=== PATIENT | female | born 2000 | race Caucasian/White ===

== ENCOUNTER 2020-02-13 14:45 | Emergency (ER) | payer BC, SELFPAY ==
[2020-02-13] VITALS (9 sets, daily range): BP systolic 106–159; BP diastolic 60–97; PULSE 86–120; RESP 12–20; TEMP 36.4–36.8; O2SAT 96–100
--- NOTE | ~2020-02-13 | US_ITS ---
EXAMINATION: US pelvic complete w TV EXAM DATE: 02/13/2020 16:54 INDICATION: Pelvic pain. Abnormal uterine bleeding. TECHNIQUE: Pelvic transabdominal and transvaginal sonogram was performed. There are multiple graysca le and Doppler images available for interpretation. There is no prior study for comparison. FINDINGS: Uterus measures 9.6 x 3.3 x 4.8 cm, is anteverted and morphologically normal. Endometrial stripe measures 4 mm, within normal limits. There is no free pelvic fluid. Right adnexa: The ovary measures 4 x 1.8 x 1.8 cm and is morphologically normal. Ovarian vascular deborah w confirmed. Left adnexa: The ovary is not identified. There is no adnexal mass. IMPRESSION: 1. Unremarkable pelvic ultrasound exam. Reviewed, dictated and finalized at location A.
[2020-02-13 15:20] LABS: Basophils Percent Auto 0.4 % (0.2-1.2); Eosinophils Absolute Auto 0.3 K/mm3 (0-0.3); Eosinophils Percent Auto 2.4 % (0-4.4); Hematocrit 40.5 % (37.0-47.0); Hemoglobin 13.2 g/dL (12.0-15.0); Immature Granulocyte Absolute 0.03 K/mm3 (0.00-0.031); Immature Granulocyte Percent A 0.3 % (0-0.5); Lymphocytes Absolute Auto 1.97 K/mm3 (0.9-3.2); Lymphocytes Percent Auto 18.6 % (18.3-44.2); Mean Corpuscular HGB Conc 32.6 g/dl (32-36); Mean Corpuscular Hemoglobin 27.4 pg (26-34); Mean Corpuscular Volume 84.2 fl (80-100); Mean Platelet Volume 9.8 fl (7.4-10.4); Monocytes Absolute Auto 0.9 K/mm3 (0.1-0.6); Monocytes Percent Auto 8.7 % (2.6-8.5); Neutrophils Absolute Auto 7.4 K/mm3 (1.3-6.7); Neutrophils Percent Auto 69.6 % (45.5-73.1); Platelet Count Result 261 k/mm3 (150-375); Red Blood Count 4.81 M/mm3 (4.2-5.4); Red Cell Distribution Width 13.7 % (11.5-14.5); White Blood Count 10.6 K/mm3 (4.5-10.0)
[2020-02-13 15:55] LABS: Beta HCG Quantitative < 2.39 mIU/ML
--- NOTE | 2020-02-13 16:09 | PC.NURSE ---
added on cmp at this time
--- NOTE | 2020-02-13 16:10 | ED.FEMALEGU ---
HPI - Female Genitourinary General Chief complaint: Vaginal Bleeding Stated complaint: VAGINAL BLEEDING/NEGATIVE PREG TEST Time Seen by Provider: 02/13/20 15:30 Source: patient Mode of arrival: ambulatory Limitations: no limitations History of Present Illness HPI Narrative: This is a 19 year old female that presents to the ER for AUB. Reports her last period was in the end of December. Reports she started bleeding and cramping 3 days ago. Reports the bleeding was heavier than usual which concerned her. Reports a negative urine test at home. Reports urinary frequency. Denies fever, nausea, vomiting, or dysuria. Related Data Allergies Allergy/AdvReac Type Severity Reaction Status Date / Time No Known Allergies Allergy Mild Verified 02/13/20 14:46 Review of Systems Review of Systems: Narrative: CONSTITUTIONAL: Denies fever GASTROINTESTINAL: Reports pelvic pain. Denies nausea, vomiting, or diarrhea. GENITOURINARY: Denies dysuria or hematuria. All systems reviewed & are unremarkable except as noted in HPI and below PMFSH Past Medical History Medical History (Updated 02/13/20 @ 19:15 by Veronica Merino PA-C) No active medical problems Social History Social History (Updated 02/13/20 @ 16:11 by Veronica Merino PA-C) Substance use: never Gender identity (if verbalized by the patient): Female Exam Narrative: Exam Narrative: GENERAL: Well-appearing, well-nourished, and in no acute distress. HEAD: Normocephalic, atraumatic. EYES: EOMI. CHEST: Clear to auscultation. No respiratory distress. No wheezes rales or rhonchi HEART: Regular rate and rhythm. No murmur heard. Normal peripheral pulses. ABDOMEN: Soft, nontender, nondistended, normal active bowel sounds. EXTREMITIES: Normal range of motion. No edema. SKIN: Warm, dry, no rash. NEURO: No focal deficits. Alert and oriented x3. PSYCH: Normal mood and affect PELVIC: Small amount of red blood in the vaginal vault, slowly oozing from cervix. Course Vital Signs Vital signs: Vital Signs Temperature 97.6 F 02/13/20 14:47 Pulse Rate 120 H 02/13/20 14:47 Respiratory Rate 20 02/13/20 14:47 Blood Pressure 159/97 H 02/13/20 14:47 Pulse Oximetry 100 02/13/20 14:47 Temperature 97.6 F 02/13/20 14:47 Pulse Rate 95 02/13/20 18:57 Respiratory Rate 12 02/13/20 18:57 Blood Pressure 141/87 H 02/13/20 18:57 Pulse Oximetry 96 02/13/20 18:57 MDM - Female Genitourinary MDM Narrative Medical decision making narrative: Patient presents to the emergency department for abnormal uterine bleeding. Reports she was having very heavy bleeding for the last couple of days. She is afebrile and nontoxic-appearing. No concerning bleeding on exam. She is not orthostatic. Her hemoglobin is 13.2. Metabolic panel without concerning findings. Quantitative beta-hCG is negative. UA with 10-15 white blood cells and 1+ bacteria, but also with many squamous epithelial cells. This will be sent for culture. Pelvic US is without acute findings. Patient will be started on oral antibiotic for possible urinary tract infection. She is stable and felt appropriate further outpatient evaluation. She is to follow-up with her primary care doctor. She was given warnings to return to the ER Lab Data Attestation: I reviewed the patient's lab results. Result diagrams: 02/13/20 15:13 02/13/20 15:13 Labs: Lab Results 02/13/20 02/13/20 02/13/20 Range/Units 15:13 15:13 15:13 WBC 10.6 H (4.5-10.0) K/mm3 RBC 4.81 (4.2-5.4) M/mm3 Hgb 13.2 (12.0-15.0) g/dL Hct 40.5 (37.0-47.0) % MCV 84.2 (80-100) fl MCH 27.4 (26-34) pg MCHC 32.6 (32-36) g/dl RDW 13.7 (11.5-14.5) % Plt Count 261 (150-375) k/mm3 MPV 9.8 (7.4-10.4) fl Immature Gran % (Auto) 0.3 (0-0.5) % Neut % (Auto) 69.6 (45.5-73.1) % Lymph % (Auto) 18.6 (18.3-44.2) % [place] % (Auto) 8.7 H (2.6-8.5) % Eos % (Auto) 2.4 (
[2020-02-13 16:36] LABS: Alanine Aminotransferase 28 U/L (4-35); Alkaline Phosphatase 63 U/L (38-126); Anion Gap 12 mmol/L (8-16); Aspartate Amino Transferase 42 U/L (14-36); Bilirubin,Total 0.5 mg/dL (0.2-1.3); Blood Urea Nitrogen 17 mg/dL (7-17); Calcium 9.1 mg/dL (8.4-10.2); Carbon Dioxide 24 mmol/L (22-30); Chloride 107 mmol/L (98-107); Estimated Glomerular Filt Rate > 60; Glucose 108 mg/dL (65-105); Sodium 143 mmol/L (137-145)
[2020-02-13 18:21] LABS: Add Urine Microscopic? YES; Appearance Urine Cloudy (Clear); Bacteria Urine 1+ /hpf; Bilirubin Urine Negative (Negative); Blood Urine 3+ (Negative); Color Urine Yellow (Yellow); Glucose Urine UA Negative (Negative); Ketones Urine Negative (Negative); Leukocyte Esterase Ur Negative LEU/UL (Negative); Mucus Urine Few /lpf; Nitrate Urine Negative (Negative); Protein Urine Negative (Negative); RBC Urine >75 /hpf (0-2); Specific Grav Ur 1.024 (1.001-1.035); Squamous Epithelial Cell Urine Many /hpf (Few); Urobilinogen Urine Negative mg/dL (<2.0)
== END 2020-02-13 19:21 | disposition home or self-care (01) ==
PROVIDERS: Physician Assistant; Emergency Provider Family Medicine; PCP Family Medicine Adolescent Medicine
DX: N93.8 Other specified abnormal uterine and vaginal bleeding (principal); N30.00 Acute cystitis without hematuria
CPT/HCPCS: 36415; 76830; 76856; 80053; 81001; 84702; 85025; 87086; 87088; 99284

== ENCOUNTER 2020-06-25 19:45 | Emergency (ER) | payer MEDICAID, SELFPAY ==
[2020-06-25 20:25] VITALS: BP 134/79; PULSE 88; RESP 16; TEMP 36.4; O2SAT 100
[2020-06-26] VITALS: BP 142/78; PULSE 87; RESP 20; O2SAT 100
[2020-06-26 01:14] LABS: Add Urine Microscopic? YES; Appearance Urine Cloudy (Clear); Bacteria Urine Trace /hpf; Bilirubin Urine Negative (Negative); Blood Urine 3+ (Negative); Color Urine Amber (Yellow); Glucose Urine UA Negative (Negative); Ketones Urine Negative (Negative); Leukocyte Esterase Ur Trace LEU/UL (Negative); Mucus Urine Heavy /lpf; Nitrate Urine Negative (Negative); Protein Urine 2+ mg/dL (Negative); Specific Grav Ur 1.033 (1.001-1.035); Squamous Epithelial Cell Urine Many /hpf (Few)
--- NOTE | 2020-06-26 01:25 | PC.NURSE ---
pt. requesting to go. Pt. states she wants to go home. RN educated pt. of the risks of leaving before completing a medical screening. Pt. still stating she would like to leave. ERP notified of Pt. request. ERP in to further educate the Pt. of risks of leaving against medical advice. PT. signed AMA paper work.
--- NOTE | 2020-06-26 01:26 | ED.GENADULT ---
HPI - General Adult General Chief complaint: Vaginal Bleeding Stated complaint: miscarriage only bleeding in the pee not the pad Time Seen by Provider: 06/26/20 00:34 History of Present Illness HPI narrative: Patient is a 20-year-old female who presents the emergency department chief complaint of vaginal bleeding/bleeding with urination. The patient states she recently saw her SENIOR MECHANICAL ESTIMATOR after she found out she was and was told that she was going to miscarry. Patient states she had some discomfort in her pelvis and abdomen states that whenever she urinates there is blood denies having vaginal bleeding this been enough to fill a pad. Related Data Allergies Allergy/AdvReac Type Severity Reaction Status Date / Time No Known Allergies Allergy Mild Verified 02/13/20 14:46 Review of Systems Review of Systems: Narrative: A 10 system review of systems was completed on the patient and is negative except for what is stated in the HPI. Nursing and ancillary documentation was reviewed. [facility] Past Medical History Medical History No active medical problems Social History Social History Substance use: never Gender identity (if verbalized by the patient): Female Exam Narrative: Exam Narrative: GENERAL: Well-appearing, well-nourished, and in no acute distress. HEAD: Normocephalic, atraumatic. EYES: PERRLA and EOMI. ENT: Nares clear, no rhinorrhea or epistaxis. Mucous membranes moist. NECK: Supple. CHEST: Clear to auscultation. No respiratory distress. HEART: Regular rate and rhythm. No murmur heard. Normal peripheral pulses. ABDOMEN: Soft, nontender, nondistended, normal active bowel sounds. EXTREMITIES: Normal range of motion. No edema. SKIN: Warm, dry, no rash. NEURO: No focal deficits. Alert and oriented x3. PSYCH: Normal mood and affect. Course Course Emergency Course: It was explained to the patient that we would need to do laboratory testing and potentially an ultrasound to evaluate for her symptoms. Patient stated that it was late in the evening and she wished to go home at this time. It was explained that the risk of neck risk of other permanent disability or permanent infertility the patient understood these risk and stated that she would follow-up with her SENIOR MECHANICAL ESTIMATOR. Vital Signs Vital signs: Vital Signs Temperature 36.4 C 06/25/20 20:25 Pulse Rate 88 06/25/20 20:25 Respiratory Rate 16 06/25/20 20:25 Blood Pressure 134/79 06/25/20 20:25 Pulse Oximetry 100 06/25/20 20:25 Temperature 36.4 C 06/25/20 20:25 Pulse Rate 87 06/26/20 00:00 Respiratory Rate 20 06/26/20 00:00 Blood Pressure 142/78 H 06/26/20 00:00 Pulse Oximetry 100 06/26/20 00:00 Medical Decision Making Vital Signs Vital Signs: Vital Signs Temperature 36.4 C 06/25/20 20:25 Pulse Rate 88 06/25/20 20:25 Respiratory Rate 16 06/25/20 20:25 Blood Pressure 134/79 06/25/20 20:25 Pulse Oximetry 100 06/25/20 20:25 Temperature 36.4 C 06/25/20 20:25 Pulse Rate 87 06/26/20 00:00 Respiratory Rate 20 06/26/20 00:00 Blood Pressure 142/78 H 06/26/20 00:00 Pulse Oximetry 100 06/26/20 00:00 Lab Data Labs: Lab Results 06/26/20 Range/Units 00:55 Urine Color Penny (Yellow) Urine Appearance Cloudy H (Clear) Urine pH 5.0 (5.0-9.0) Ur Specific [place] 1.033 (1.001-1.035) Urine Protein 2+ H (Negative) mg/dL Urine Glucose (UA) Negative (Negative) mg/dL Urine Ketones Negative (Negative) mg/dL Ur Blood (Man) 3+ H (Negative) Urine Nitrate Negative (Negative) Urine Bilirubin Negative (Negative) Urine Urobilinogen 2.0 H (<2.0) mg/dL Leukocyte Esterase Rfl Trace H (Negative) BRUNO/UL Urine RBC 3-5 H (0-2) /hpf Urine WBC 7-9 H /hpf Ur Squamous Epith Cells Many H (Few) /hpf Urine Bacteria Trace /hpf Urine Mu
== END 2020-06-26 01:25 | disposition left against medical advice (07) ==
PROVIDERS: Emergency Provider Emergency Medicine; PCP Family Medicine Adolescent Medicine
DX: O20.0 Threatened abortion (principal); Z3A.00 Weeks of gestation of pregnancy not specified
CPT/HCPCS: 81001; 81025; 87086; 99283

== ENCOUNTER 2020-06-30 00:59 | Day surgery (SDC) | payer MEDICAID, SELFPAY ==
[2020-06-30 10:42] VITALS: BP 140/83; PULSE 88; RESP 20; TEMP 36.7; O2SAT 100
[2020-06-30] MEDS: LACTATED RINGERS 1,000 ML 30 ML IV CONT (11:00)
[2020-06-30] MEDS: ACETAMINOPHEN 500 MG TABLET 1000 MG PO (11:11)
--- NOTE | 2020-06-30 11:16 | WPDANESEPPF ---
Anes - Initial Pre Proc Eval Procedure: Operation Date: 06/30/20 12:00 Proposed Procedures p Suction Dilation And Curettage - Hanh Kirby MD Date/Time: 06/30/20 11:16 Surgeon: Hanh Kirby MD Pre Op Diagnosis: Missed Ab Patient Data Age: 20 Gender: F Height: Weight: Allergies Allergy/AdvReac Type Severity Reaction Status Date / Time No Known Allergies Allergy Mild Verified 02/13/20 14:46 Home Medications Medication Instructions Recorded Confirmed Type No Home Medications 06/30/20 06/30/20 History Patient hx anesthesia problems: none Family hx anesthesia problems: none [facility] Past Medical History Medical History No active medical problems Social History Social History Smoking packs per day: 0.5 Smoking cigarettes per day: 10.0 Years smoked: 1 Smoking pack-years: 0.50 Smoking status: Current every day smoker Tobacco type: cigarettes Substance use: never Living arrangements: with family Gender identity (if verbalized by the patient): Female Sexual Orientation (if Verbalized by the Patient): Straight or Heterosexual Spiritual care concerns: No Anes - Eval Final PreProcedure Day of Procedure 06/30/20 11:16 Patient weight: super morbidly obese Heart: regular rate and rhythm Lungs: clear to auscultation and normal air movement Airway: Mallampati scale class II Neurological: alert and oriented Last oral intake: >/= 8 hours ASA classification: III Emergent: no Anesthetic plan: proceed Anesthesia type and monitoring: general GIVS and standard monitoring Informed Consent: The patient's anesthetic plan and its attendant risks and benefits were discussed with the patient/family/POA. Questions were solicited and answers provided to the satisfaction of the patient/family/POA.
[2020-06-30 11:19] VITALS: BMI 53.2
--- NOTE | 2020-06-30 12:56 | WPDHPUPDATE1 ---
History and Physical Update Update Date/Time: 06/30/20 12:56 History and Physical has been reviewed, including an updated exam of the patient. There are NO changes in the patient's condition. Risks, benefits, and alternatives have been discussed and questions answered. Patient agrees to proceed with procedure.
--- NOTE | 2020-06-30 12:56 | PM.IMHP ---
H&P: HPI History of Present Illness Date/Time: 06/30/20 12:56 Chief Complaint: Incomplete miscarriage Narrative: Beba Sparks is a 20 year old female 1 with a incomplete . We have agreed to perform suction D&C. She understands there is risk to the procedure. She understands that injuries may occur that result in hospitalization, more surgery, severe illness. She understands there is risk of hemorrhage and infection. She denies any nausea, vomiting, fever, chills. She denies any chest pain or shortness of breath. Review of Systems Constitutional: Constitutional: Reports no additional constitutional complaints, Denies fatigue, Denies headache(s), Denies lethargy and Denies weakness Eyes: Eyes: Reports no additional eye complaints, Denies blurry vision and Denies photophobia ENT: Reports as per HPI, Denies headache(s) and Denies neck pain Cardiovascular: Cardiovascular: Denies chest pain, Denies diaphoresis, Denies leg edema, Denies palpitations and Denies dyspnea Respiratory: Respiratory: Denies hemoptysis, Denies dyspnea and Denies wheezing Gastrointestinal: Gastrointestinal: Denies abdominal pain, Denies melena, Denies bloating, Denies hematochezia, Denies nausea and Denies vomiting Genitourinary: Genitourinary: Reports no additional female genitourinary complaints Musculoskeletal: Musculoskeletal: Denies joint swelling, Denies neck pain, Denies numbness and Denies stiffness Neurologic: Denies Abnormal speech present, Denies confusion, Denies headache(s), Denies numbness and Denies weakness Psychiatric: Psychiatric: Denies anxiety, Denies confusion, Denies depression, Denies homicidal ideation and Denies suicidal ideation Endocrine: Endocrine: Denies fatigue and Denies palpitations Allergic/Immunologic: Allergic/Immunologic: Denies wheezing PMFSH Past Medical History Medical History No active medical problems Social History Social History Smoking packs per day: 0.5 Smoking cigarettes per day: 10.0 Years smoked: 1 Smoking pack-years: 0.50 Smoking status: Current every day smoker Tobacco type: cigarettes Substance use: never Living arrangements: with family Gender identity (if verbalized by the patient): Female Sexual Orientation (if Verbalized by the Patient): Straight or Heterosexual Spiritual care concerns: No Meds Home Medications and Allergies Home Medications Medication Instructions Recorded Confirmed Type No Home Medications 06/30/20 06/30/20 History Allergies Allergy/AdvReac Type Severity Reaction Status Date / Time No Known Allergies Allergy Mild Verified 06/30/20 12:07 Vital Signs Vital Signs - 24 hr 06/30/20 10:42 Temperature 98.0 F Pulse Rate 88 Respiratory Rate 20 Blood Pressure 140/83 Pulse Oximetry 100 Exam Const: General: healthy appearing, comfortable and no acute distress; No confusion Orientation/consciousness: No confusion Eyes: Direct Ophthalmoscopy: No photophobia Resp: Auscultation: clear to auscultation bilaterally, no rales, no rhonchi and no wheezes Cardio: Rate: regular rate Heart sounds: no click, no murmurs and no rubs GI: Inspection: non-distended GI Palp: No abdominal tenderness Auscultation: normal bowel sounds Neuro: General: No confusion Speech: No Abnormal speech present Extrem: General: normal to inspection, no pedal edema and no calf tenderness Assessment and Plan Assessment and plan (1) Incomplete miscarriage: Code(s): O03.4 - Incomplete spontaneous without complication Status: Acute Additional Plan This patient is a 20-year-old 1 at the 1st trimester with an incomplete . We have agreed to perform suction D&C. She understands the risks, benefits, and alternatives. She has completed the informed consent processes and raised to
[2020-06-30 14:10] VITALS: BP 117/88; PULSE 84; RESP 12; O2SAT 90
--- NOTE | 2020-06-30 14:25 | P.OP_ITS ---
Procedure Note - Detailed Date of procedure: 06/30/20 Pre-op diagnosis: Missed Ab Post-op diagnosis: same Procedure performed: Suction D&C Description of procedure: The patient was taken the operating room. She has prepped and draped in dorsal lithotomy position after induction of mac anesthesia. A speculum was placed in the vagina. The cervix was grasped with a tenaculum. The cervix was injected at 3 and 9:00 a.m. with 1% lidocaine. The cervix was dilated up to 8 mm using Flores dilators. An 8 curved plastic suction curette was then applied to the intrauterine cavity. All of the surfaces in the intrauterine cavity were curettage under VAC. A sharp medium-size curette was then used to curettage all the surfaces to confirmed the removal of all the products conception. When all surfaces for bleed to be clean the curette was r emoved. The suction curette was then reapplied to remove all the debris. The procedure was terminated. The tenaculum was removed. The speculum was removed. The patient tolerated the procedure well. She was taken recovery room in stable condition. Anesthesia: MAC Surgeon: Hanh Kirby MD Estimated blood loss (mL): 25 Drains: No Packing: No Pathology: yes Complications: No immediate complications Condition: stable Disposition: PACU Findings: Normal vulva vagina and cervix. The moderate amounts of products conception. 8 cm uterus.
[2020-06-30 14:40] VITALS: BP 115/82; PULSE 86; RESP 12; O2SAT 94
[2020-06-30 15:10] VITALS: BP 122/82; PULSE 88; RESP 16
== END 2020-06-30 16:07 | disposition home or self-care (01) ==
PROVIDERS: PCP Family Medicine Adolescent Medicine; Visit Provider Obstetrics & Gynecology
PROC: (CPT 59820; principal; 2020-06-30 12:00)
DX: O02.1 Missed abortion (principal); F17.210 Nicotine dependence, cigarettes, uncomplicated
CPT/HCPCS: 59820; 88305; A9270; J1100; J2250; J2405; J2704; J3010; J7120

== ENCOUNTER 2021-06-03 16:10 | Emergency (ER) | payer OTHER, SELFPAY ==
[2021-06-03 16:17] VITALS: BP 132/86; PULSE 84; RESP 16; TEMP 37.1; O2SAT 100
--- NOTE | 2021-06-03 17:05 | ED.URI ---
HPI - URI/Sore Throat General Chief Complaint: Abdominal Pain Stated Complaint: Headache Time Seen by Provider: 06/03/21 17:05 Source: patient Mode of arrival: ambulatory Limitations: no limitations History of Present Illness HPI Narrative: Beba Sparks is a 21 yo female with no PMH -sates she has abdominal pain in the left part of her lower abdomen that started yesterday and today she woke up and had no appetite, when she tried to eat something she threw up. She thought that she had a fever this morning also but did not take it Related Data Allergies Allergy/AdvReac Type Severity Reaction Status Date / Time No Known Allergies Allergy Mild Verified 06/30/20 12:07 Review of Systems Review of Systems: CONSTITUTIONAL: Denies fever, chills, sweats. EYES: Denies visual changes, redness, discharge. ENT: Denies rhinorrhea, congestion, sore throat, otalgia. CARDIOVASCULAR: Denies chest pain, palpitations, edema. RESPIRATORY: Denies dyspnea, wheezing, cough GASTROINTESTINAL: has abdominal pain, has nausea, has vomiting, no diarrhea. GENITOURINARY: Denies dysuria, hematuria, abnormal discharge SKIN: Denies rash or itching. NEUROLOGIC: Denies numbness, or focal weakness. PSYCHIATRIC: Denies anxiety or depression. PMFSH Past Medical History Medical History No active medical problems Social History Social History Smoking packs per day: 0.5 Smoking cigarettes per day: 10.0 Years smoked: 1 Smoking pack-years: 0.50 Smoking status: Current every day smoker Tobacco type: cigarettes Substance use: never Gender identity (if verbalized by the patient): Female Sexual Orientation (if Verbalized by the Patient): Straight or Heterosexual Spiritual care concerns: No Comments At time of signature, I agree with nursing past medical, surgical, social and family history. There is no relevant family history pertinent to the presenting complaint. Exam Narrative: GENERAL: This is a well-nourished, well-developed patient, in mild distress. HEAD: normocephalic, atraumatic. EYES: Sclera clear/white. Vision is grossly intact. EARS: External ears normal, auditory canals clear and without drainage, TMs normal without perforation. Hearing grossly intact. NOSE: External nose normal without nasal discharge, nares without redness, no rhinorrhea. THROAT: Mucous membranes moist, posterior pharynx erythema NECK: Neck supple, non-tender CARDIOVASCULAR: Regular rate and rhythm without murmurs, gallops, or rubs. RESPIRATORY: Clear to auscultation. Breath sounds equal bilaterally. No wheezes, rales, or rhonchi. GASTROINTESTINAL: Abdomen soft, SKIN: warm, intact with no suspicious lesions or rash, good texture and turgor. NEURO: awake, alert, and oriented to person, place and time. There were no obvious focal neurologic abnormalities. Steady gait EXTREMITIES: Normal range of motion. BACK: Nontender without deformity Course Course Emergency Course: Patient comes to [facility] with lower abdominal pain denies any dysuria states that has been vomiting and has been feeling well last 24 hours Flu test done-positive for flu A Covid test done-negative Encourage adequate hydration Level of Care: [facility] Vital Signs Vital signs: Vital Signs Temperature 98.8 F 06/03/21 16:17 Pulse Rate 84 06/03/21 16:17 Respiratory Rate 16 06/03/21 16:17 Blood Pressure 132/86 06/03/21 16:17 Pulse Oximetry 100 06/03/21 16:17 Temperature 98.8 F 06/03/21 16:17 Pulse Rate 84 06/03/21 16:17 Respiratory Rate 16 06/03/21 16:17 Blood Pressure 132/86 06/03/21 16:17 Pulse Oximetry 100 06/03/21 16:17 MDM - URI/Sore Throat Differential Diagnosis Differential diagnosis: Likely upper respiratory infection, viral infection and pharyngitis Lab Data Labs: Influenza A Screen Positive
== END 2021-06-03 17:34 | disposition home or self-care (01) ==
PROVIDERS: Emergency Provider Nurse Practitioner; PCP Family Medicine Adolescent Medicine
DX: J10.1 Influenza due to other identified influenza virus with other respiratory manifestations (principal); Z20.822 Contact with and (suspected) exposure to COVID-19; F17.210 Nicotine dependence, cigarettes, uncomplicated
CPT/HCPCS: 87081; 87426; 87804; 87880; 99213; C9803; G0463

== ENCOUNTER 2021-10-31 13:55 | Emergency (ER) | payer OTHER, SELFPAY ==
--- NOTE | ~2021-10-31 | US_ITS ---
EXAMINATION: US OB <=14 wk fetus w TV DATE: 10/31/2021 15:10 INDICATION: Spotting during first trimester TECHNIQUE: Real-time pelvic transabdominal and transvaginal ultrasound was performed. COMPARISON: None. FINDINGS: There is an intrauterine gestational sac. A yolk sac is identified. heart motion is i dentified measuring 104 beats per minute (bpm) by M-mode Doppler. The crown rump length measure s 3 mm , which correlates with an estimated gestational age of 6 weeks and 0 day(s) (+/-) 4 day(s). The right ovary measures 4.3 x 4.3 x 3.6 cm and contains a 3.5 cm cyst with thin septation. The left ovary measures 2.7 x 1.4 x 3.0 cm. There is normal vascular flow in the ovaries. There is no free flu id in the pelvis. IMPRESSION: 1. Live intrauterine with an estimated gestational age of 6 weeks and 0 day(s) (+/-) 4 day( s) and an estimated delivery date of 06/26/2022. Reviewed, dictated and finalized at location A. IMPRESSION: 1. Live intrauterine with an estimated gestational age of 6 weeks and 0 day(s) (+/-) 4 day(s) and an estimated delivery date of 06/26/2022.
[2021-10-31 14:13] VITALS: BP 141/86; PULSE 85; RESP 16; TEMP 36.6; O2SAT 100
[2021-10-31 14:36] LABS: Appearance Urine Cloudy (Clear); Bilirubin Urine Negative (Negative); Blood Urine 3+ (Negative); Color Urine Yellow (Yellow); Glucose Urine UA Negative (Negative); Ketones Urine Negative (Negative); Leukocyte Esterase Ur Negative LEU/UL (Negative); Nitrate Urine Negative (Negative); Protein Urine Trace mg/dL (Negative); Specific Grav Ur >= 1.030 (1.001-1.035); Urobilinogen Urine 0.2 mg/dL (<2.0)
[2021-10-31 14:41] LABS: Add Urine Microscopic? YES; Bacteria Urine Trace /hpf; Mucus Urine Rare /lpf; Squamous Epithelial Cell Urine Many /hpf (Few); WBC Urine 0-3 /hpf
--- NOTE | 2021-10-31 17:03 | ED.FEMALEGU ---
HPI - Female Genitourinary General Chief complaint: Urogenital-Female Stated complaint: Blood in Urine, 6 weeks Preg Time Seen by Provider: 10/31/21 16:59 History of Present Illness HPI Narrative: 19-year-old female presented to the emergency room via EMS because she needed a ride for evaluation of hematuria. Patient states that she is 6 weeks , and has not received any care as time. Patient denies taking any medications, including vitamins. Patient states that she occasionally has some upper abdominal discomfort, most commonly after eating food. Patient denies any nausea vomiting, diarrhea or constipation. Patient denies any abdominal cramping. Related Data Home Medications Medication Instructions Recorded Confirmed No Home Medications 10/31/21 Allergies Allergy/AdvReac Type Severity Reaction Status Date / Time No Known Allergies Allergy Mild Verified 10/31/21 14:15 Review of Systems Review of Systems: CONSTITUTIONAL: Denies fever, chills, or sweats. EYES: Denies visual changes, redness, or discharge. ENT: Denies rhinorrhea, congestion, sore throat, or otalgia. CARDIOVASCULAR: Denies chest pain, palpitations, or edema. RESPIRATORY: Denies cough or dyspnea. GASTROINTESTINAL: Denies abdominal pain, nausea, vomiting, or diarrhea. GENITOURINARY: Reports hematuria SKIN: Denies rash or itching. MUSCULOSKELETAL: Denies back pain, joint pain, or myalgia. NEUROLOGIC: Denies headache, numbness, dizziness, or weakness. PSYCHIATRIC: Denies anxiety or depression. [facility] Past Medical History Medical History No active medical problems Family History Family History Mother Diabetes mellitus Grandparent Diabetes mellitus Brain cancer Social History Social History Smoking packs per day: 0.5 Smoking cigarettes per day: 10.0 Years smoked: 1 Smoking pack-years: 0.50 Smoking status: Current every day smoker Tobacco type: cigarettes Second hand tobacco smoke exposure: Yes Alcohol intake: current Alcohol use details: Socially Substance use: never Substance use type: does not use Gender identity (if verbalized by the patient): Female Sexual Orientation (if Verbalized by the Patient): Straight or Heterosexual Spiritual care concerns: No Agree to blood products: Yes Exam Narrative: GENERAL: Well-appearing, well-nourished, no physical limitations, and in no acute distress. HEAD: Normocephalic, atraumatic. EYES: Conjunctivae normal, PERRLA and EOMI. CHEST: Clear to auscultation. No respiratory distress. No wheezes rales or rhonchi. No tenderness. HEART: Regular rate and rhythm. No murmur heard. Normal peripheral pulses. ABDOMEN: Soft, nontender, morbidly obese, normal active bowel sounds. EXTREMITIES: Normal range of motion. No edema. No clubbing or cyanosis SKIN: Warm, dry, no rash. No noted wounds NEURO: No focal deficits. Alert and oriented x3. MAEW. CN's II-XI intact bilaterally, normal gait PSYCH: Cooperative. Normal mood and affect. Course Vital Signs Vital signs: Vital Signs Temperature 36.6 C 10/31/21 14:13 Pulse Rate 85 10/31/21 14:13 Respiratory Rate 16 10/31/21 14:13 Blood Pressure 141/86 H 10/31/21 14:13 Pulse Oximetry 100 10/31/21 14:13 Oxygen Delivery Room Air 10/31/21 14:13 Temperature 36.6 C 10/31/21 14:13 Pulse Rate 85 10/31/21 14:13 Respiratory Rate 16 10/31/21 14:13 Blood Pressure 141/86 H 10/31/21 14:13 Pulse Oximetry 100 10/31/21 14:13 Oxygen Delivery Room Air 10/31/21 14:13 MDM - Female Genitourinary Medical Records Medical records narrative: 21-year-old female presented to the emergency room for evaluation of probable vaginal bleeding. Patient states that she is 6 weeks , not receiving any care. Patient sta
[2021-10-31 17:30] LABS: Basophils Percent Auto 0.2 % (0.2-1.2); Eosinophils Percent Auto 0.5 % (0-4.4); Hematocrit 40.8 % (37.0-47.0); Hemoglobin 13.3 g/dL (12.0-15.0); Immature Granulocyte Absolute 0.02 K/mm3 (0.00-0.031); Immature Granulocyte Percent A 0.2 % (0-0.5); Lymphocytes Absolute Auto 1.65 K/mm3 (0.9-3.2); Lymphocytes Percent Auto 19.8 % (18.3-44.2); Mean Corpuscular HGB Conc 32.6 g/dl (32-36); Mean Corpuscular Hemoglobin 27.6 pg (26-34); Mean Corpuscular Volume 84.6 fl (80-100); Mean Platelet Volume 9.4 fl (7.4-10.4); Monocytes Absolute Auto 0.5 K/mm3 (0.1-0.6); Monocytes Percent Auto 6.5 % (2.6-8.5); Neutrophils Absolute Auto 6.1 K/mm3 (1.3-6.7); Neutrophils Percent Auto 72.8 % (45.5-73.1); Platelet Count Result 260 k/mm3 (150-375); Red Blood Count 4.82 M/mm3 (4.2-5.4); Red Cell Distribution Width 13.4 % (11.5-14.5); White Blood Count 8.3 K/mm3 (4.5-10.0)
[2021-10-31 17:46] LABS: Lipase 54 U/L (23-300)
[2021-10-31 18:00] LABS: Alanine Aminotransferase 33 U/L (6-35); Albumin Level 4.5 g/dL (3.5-5.1); Alkaline Phosphatase 65 U/L (38-126); Anion Gap 7 mmol/L (8-16); Aspartate Amino Transferase 29 U/L (14-36); Bilirubin,Total 0.6 mg/dL (0.2-1.3); Blood Urea Nitrogen 15 mg/dL (7-17); Calcium 9.1 mg/dL (8.4-10.2); Carbon Dioxide 25 mmol/L (22-30); Chloride 103 mmol/L (98-107); Estimated Glomerular Filt Rate > 60; Glucose 88 mg/dL (65-110); Potassium 3.9 mmol/L (3.4-5.0); Sodium 135 mmol/L (137-145)
[2021-10-31 18:24] VITALS: BP 132/78; PULSE 70; RESP 20; O2SAT 99
== END 2021-10-31 18:26 | disposition home or self-care (01) ==
PROVIDERS: Emergency Medicine; Emergency Provider Nurse Practitioner Family; PCP Family Medicine Adolescent Medicine
DX: O26.891 Other specified pregnancy related conditions, first trimester (principal); R31.9 Hematuria, unspecified; F17.210 Nicotine dependence, cigarettes, uncomplicated; Z3A.01 Less than 8 weeks gestation of pregnancy
CPT/HCPCS: 36415; 76801; 76817; 80053; 81001; 83690; 84702; 85025; 99284

== ENCOUNTER 2022-01-25 19:40 | Emergency (ER) | payer OTHER, SELFPAY ==
[2022-01-25 20:44] VITALS: BP 150/88; PULSE 97; RESP 18; TEMP 36.6; O2SAT 100
--- NOTE | 2022-01-25 21:17 | ED.SKABFB ---
HPI - Skin/Abscess/Foreign Bdy General Chief complaint: Skin/Abscess/Foreign Body Stated complaint: itching all over Time Seen by Provider: 01/25/22 21:05 Source: patient Mode of arrival: ambulatory Limitations: no limitations History of Present Illness HPI narrative: This is a 21-year-old female that presents to the emergency department for diffuse itching. Present over the last month. She has not been taking anything for itching. She does not report any rashes. Denies fevers. Related Data Allergies Allergy/AdvReac Type Severity Reaction Status Date / Time No Known Allergies Allergy Mild Verified 10/31/21 14:15 Review of Systems Review of Systems: CONSTITUTIONAL: Denies fever SKIN: Reports itching. Denies rash All systems reviewed & are unremarkable except as noted in HPI and below PMFSH Past Medical History Medical History No active medical problems Family History Family History Mother Diabetes mellitus Grandparent Diabetes mellitus Brain cancer Social History Social History (Updated 01/25/22 @ 21:18 by Veronica Merino PA-C) Smoking packs per day: 0.5 Smoking cigarettes per day: 10.0 Years smoked: 1 Smoking pack-years: 0.50 Smoking status: Former smoker Tobacco type: e-cigarettes/vaping Second hand tobacco smoke exposure: Yes Alcohol intake: current Alcohol use details: Socially Substance use: never Substance use type: does not use Gender identity (if verbalized by the patient): Female Sexual Orientation (if Verbalized by the Patient): Straight or Heterosexual Spiritual care concerns: No Agree to blood products: Yes Exam Narrative: GENERAL: Well-appearing, well-nourished, and in no acute distress. HEAD: Normocephalic, atraumatic. EYES: EOMI. CHEST: No respiratory distress. HEART: Regular rate EXTREMITIES: Normal range of motion. No edema. SKIN: Warm, dry, no rash. NEURO: No focal deficits. Alert and oriented x3. PSYCH: Normal mood and affect Course Vital Signs Vital signs: Vital Signs Temperature 97.9 F 01/25/22 20:44 Pulse Rate 97 01/25/22 20:44 Respiratory Rate 18 01/25/22 20:44 Blood Pressure 150/88 H 09/21/22 20:44 Pulse Oximetry 100 01/25/22 20:44 Oxygen Delivery Room Air 01/25/22 20:44 Temperature 97.9 F 01/25/22 20:44 Pulse Rate 97 01/25/22 20:44 Respiratory Rate 18 01/25/22 20:44 Blood Pressure 150/88 H 01/25/22 20:44 Pulse Oximetry 100 01/25/22 20:44 Oxygen Delivery Room Air 01/25/22 20:44 MDM - Skin/Abscess/Foreign Bdy MDM Narrative Medical decision making narrative: Patient presents to the emergency department for diffuse itching. Present over the last month. She has not been taking any antihistamines. She does not have any notable rash. Will be instructed on use of daily Zyrtec and Pepcid to see if that helps with her itching. Instructed patient that if not she may need some follow-up with an radio electronics officer. She was given warnings to return to the ER Critical Care Time Critical Care Time Critical Care Time: No Discharge Plan Discharge Clinical Impression: Itching Patient Disposition: Home, Self-Care Condition: Stable Instructions: Itchy Skin (ED) Additional Instructions: Return to the emergency department if you experience fever, redness and swelling of your wounds, abnormal drainage from your wounds, or any other symptoms that are concerning to you Take a Pepcid and Claritin daily. Benadryl as needed for severe itching Follow-up with primary care doctor. If you have continued itching you may need follow up with an radio electronics officer Prescriptions: No Action nitrofurantoin monohyd/m-cryst [Macrobid] 100 mg capsule 100 mg PO Q12H 5 Days Qty: 10 0RF Rx Instructions: must administer with a meal/food Follow-up/Referrals: Giovany Andersen MD [Primary Car
== END 2022-01-25 21:26 | disposition home or self-care (01) ==
PROVIDERS: Emergency Provider Emergency Medicine; PCP Family Medicine Adolescent Medicine
DX: L29.9 Pruritus, unspecified (principal); Z87.891 Personal history of nicotine dependence
CPT/HCPCS: 99281

== ENCOUNTER 2022-10-12 17:57 | Emergency (ER) | payer OTHER, SELFPAY ==
--- NOTE | 2022-10-12 18:03 | ED.GENADULT ---
HPI - General Adult General Chief complaint: Urogenital-Female Stated complaint: STD History of Present Illness HPI narrative: 22-year-old female presents to the [facility] today complaining of a possible STD exposure. Patient stated that about 4 days ago she found out her boyfriend was cheating on her. Just after the patient found out her boyfriend was cheating on her she noticed a painful sore inside the cheek of her mouth. Patient denies any trauma or biting there on cheek. Patient has no sores or ulcerations on her lips or around her mouth. Patient would like to be tested for STDs due to her boyfriend cheating on her. Patient denies any vaginal discharge or any sores or ulcers on her vagina or perineum. Patient denies any pain with urination, abdominal pain, nausea, vomiting, diarrhea. Patient denies any fevers or chills. Related Data Allergies Allergy/AdvReac Type Severity Reaction Status Date / Time sulfamethoxazole AdvReac Severe Rash Verified 10/12/22 18:11 [From ] trimethoprim [From ] AdvReac Severe Rash Verified 10/12/22 18:11 Review of Systems Review of Systems: CONSTITUTIONAL: Denies fever, chills, or sweats. EYES: Denies visual changes, redness, or discharge. ENT: Denies otalgia and sore throat. Positive for sore inside mouth. CARDIOVASCULAR: Denies chest pain, palpitations, or edema. RESPIRATORY: Denies cough or dyspnea. GASTROINTESTINAL: Denies abdominal pain, nausea, vomiting, or diarrhea. GENITOURINARY: Denies dysuria or hematuria. Denies vaginal discharge. SKIN: Denies rash or itching. MUSCULOSKELETAL: Denies back pain, joint pain, or myalgia. NEUROLOGIC: Denies headache, numbness, or weakness. Pertinent positives per HPI. [facility] Past Medical History Medical History No active medical problems Family History Family History Mother Diabetes mellitus Grandparent Diabetes mellitus Brain cancer Social History Social History (Updated 01/25/22 @ 21:18 by Veronica Merino PA-C) Smoking packs per day: 0.5 Smoking cigarettes per day: 10.0 Years smoked: 1 Smoking pack-years: 0.50 Smoking status: Former smoker Tobacco type: e-cigarettes/vaping Second hand tobacco smoke exposure: Yes Alcohol intake: current Alcohol use details: Socially Substance use: never Substance use type: does not use Living arrangements: with family Occupation/Education: unemployed Gender identity (if verbalized by the patient): Female Sexual Orientation (if Verbalized by the Patient): Straight or Heterosexual Spiritual care concerns: No Agree to blood products: Yes Comments At the time of my signature, I reviewed and agree with the nursing past medical, surgical, social, and family history. There is no relevant family history pertinent to the patient complaint. Exam Narrative: GENERAL: This is a well-nourished, well-developed patient, in no apparent distress. HEAD: normocephalic, atraumatic. EYES: Sclera clear/white. Vision is grossly intact. EARS: External ears normal, auditory canals clear and without drainage, TMs normal without perforation. Hearing grossly intact. NOSE: External nose normal with no obvious nasal discharge, nares without redness, no rhinorrhea. THROAT: Mucous membranes moist, posterior pharynx clear. MOUTH: there is a small mild ulceration measuring less than 0.5 cm to the right oral commissure NECK: Neck supple, non-tender without lymphadenopathy, masses or thyromegaly. CARDIOVASCULAR: Regular rate and rhythm without murmurs, gallops, or rubs. RESPIRATORY: Clear to auscultation. Breath sounds equal bilaterally. No wheezes, rales, or rhonchi. GASTROINTESTINAL: Abdomen soft, non-tender, nondistended. Bowel sounds are active. No hepato-splenomegaly, or palpable masses. No guarding. SKIN: warm, intact with no suspicious lesions or
[2022-10-12 18:07] VITALS: BP 121/64; PULSE 96; RESP 18; TEMP 36.7; O2SAT 100
[2022-10-12 18:12] VITALS: BP 121/64; PULSE 96; RESP 18; TEMP 36.7; O2SAT 100
== END 2022-10-12 18:49 | disposition home or self-care (01) ==
PROVIDERS: Emergency Provider Nurse Practitioner Family; PCP Family Medicine Adolescent Medicine
DX: K13.70 Unspecified lesions of oral mucosa (principal); F17.290 Nicotine dependence, other tobacco product, uncomplicated
CPT/HCPCS: 81003; 81025; 87086; 87088; 87255; 87491; 87591; 87661; 99214; G0463

== ENCOUNTER 2023-02-24 06:46 | Emergency (ER) | payer OTHER, SELFPAY ==
[2023-02-24 06:49] VITALS: BP 132/98; PULSE 88; RESP 14; TEMP 36.6; O2SAT 100
[2023-02-24 07:09] VITALS: BP 127/89; PULSE 88; RESP 20; O2SAT 99
[2023-02-24 07:39] LABS: Strep Group A RT-PCR NOT DETECTED (Negative)
[2023-02-24 07:51] LABS: Influenza A QL RT-PCR Negative (Negative); Influenza B QL RT-PCR Negative (Negative); RSV RNA, RT-PCR Negative (Negative); SARS-CoV-2 RNA PCR Negative (Negative)
--- NOTE | 2023-02-24 08:08 | ED.GENADULT ---
HPI - General Adult General Chief complaint: Unspecified Stated complaint: enlarged lymph nodes; congestion Time Seen by Provider: 02/24/23 07:00 History of Present Illness HPI narrative: Patient is a 22-year-old female who presents with 2 concerns. First concern is a swollen lymph node beneath her chin. Ongoing over the last 2 weeks. She has had a CT scan and been evaluated for which showed a lymph node and cyst. Patient was on oral antibiotics developed burning urination and irritation of her vagina as well as discharge. She is concerned about a yeast infection. No difficulty breathing or swallowing. Lymph node has not reduced in size. Related Data Allergies Allergy/AdvReac Type Severity Reaction Status Date / Time sulfamethoxazole AdvReac Severe Rash Verified 02/24/23 07:11 [From ] trimethoprim [From ] AdvReac Severe Rash Verified 02/24/23 07:11 Review of Systems Constitutional: Constitutional: Denies chills and Denies fever(s) ENT: Reports nasal congestion, Reports sore throat and Denies throat swelling Comments: Submandibular lymphadenopathy Respiratory: Respiratory: Reports no additional respiratory complaints Genitourinary: Genitourinary: Reports dysuria, Reports vaginal discharge and Reports vaginal pruritus PMFSH Past Medical History Medical History No active medical problems Family History Family History Mother Diabetes mellitus Grandparent Diabetes mellitus Brain cancer Social History Social History (Updated 01/25/22 @ 21:18 by Veronica Merino PA-C) Smoking packs per day: 0.5 Smoking cigarettes per day: 10.0 Years smoked: 1 Smoking pack-years: 0.50 Smoking status: Former smoker Tobacco type: e-cigarettes/vaping Second hand tobacco smoke exposure: Yes Alcohol intake: current Alcohol use details: Socially Substance use: never Substance use type: does not use Living arrangements: with family Occupation/Education: unemployed Gender identity (if verbalized by the patient): Female Sexual Orientation (if Verbalized by the Patient): Straight or Heterosexual Spiritual care concerns: No Agree to blood products: Yes Exam Narrative: GENERAL: Well-appearing, well-nourished, and in no acute distress. HEAD: Normocephalic, atraumatic. EYES: PERRL and EOMI. ENT: Mucous membranes moist. CHEST: Clear to auscultation. No respiratory distress. HEART: Regular rate and rhythm. Normal peripheral pulses. EXTREMITIES: Normal range of motion. No edema. SKIN: Warm, dry, no rash. NEURO: Alert and oriented x3. PSYCH: Normal mood and affect. Course Course Emergency Course: Patient resting comfortably. Informed of results. Discharged with antibiotic and Diflucan. Vital Signs Vital signs: Vital Signs Temperature 97.9 F 02/24/23 06:49 Pulse Rate 88 02/24/23 06:49 Respiratory Rate 14 02/24/23 06:49 Blood Pressure 132/98 H 02/24/23 06:49 Pulse Oximetry 100 02/24/23 06:49 Oxygen Delivery Room Air 02/24/23 06:49 Temperature 97.9 F 02/24/23 06:49 Pulse Rate 88 02/24/23 07:09 Respiratory Rate 20 02/24/23 07:09 Blood Pressure 127/89 02/24/23 07:09 Pulse Oximetry 99 02/24/23 07:09 Oxygen Delivery Room Air 02/24/23 06:49 Medical Decision Making Vital Signs Vital Signs: Vital Signs Temperature 97.9 F 02/24/23 06:49 Pulse Rate 88 02/24/23 06:49 Respiratory Rate 14 02/24/23 06:49 Blood Pressure 132/98 H 02/24/23 06:49 Pulse Oximetry 100 02/24/23 06:49 Oxygen Delivery Room Air 02/24/23 06:49 Temperature 97.9 F 02/24/23 06:49 Pulse Rate 88 02/24/23 07:09 Respiratory Rate 20 02/24/23 07:09 Blood Pressure 127/89 02/24/23 07:09 Pulse Oximetry 99 02/24/23 07:09 Oxygen Delivery Room Air 02/24/23 06:49 Lab Data Labs: Lab Results 02/24
[2023-02-24 08:10] LABS: Appearance Urine Cloudy (Clear); Bacteria Urine 1+ /hpf; Bilirubin Urine Negative (Negative); Blood Urine Negative (Negative); Calcium Oxalate Crystals Urine Present /hpf; Color Urine Yellow (Yellow); Glucose Urine UA Negative (Negative); Ketones Urine Negative (Negative); Leukocyte Esterase Ur Trace LEU/UL (Negative); Need Manual Microscopic Reviewed; Nitrate Urine Negative (Negative); Non Pathogenic Casts 0-2; Protein Urine Negative (Negative); Specific Grav Ur 1.025 (1.001-1.035); Squamous Epithelial Cell Urine Moderate /hpf (Few); pH Urine 6.5 (5.0-9.0)
[2023-02-24 08:21] LABS: Add Urine Microscopic? YES
== END 2023-02-24 08:49 | disposition home or self-care (01) ==
PROVIDERS: Emergency Medicine; Emergency Provider Emergency Medicine; PCP Family Medicine Adolescent Medicine
DX: N39.0 Urinary tract infection, site not specified (principal); B37.31 Acute candidiasis of vulva and vagina; Z20.822 Contact with and (suspected) exposure to COVID-19; Z87.891 Personal history of nicotine dependence
CPT/HCPCS: 81001; 81025; 87086; 87088; 87637; 87651; 99283

== ENCOUNTER 2023-06-26 16:23 | Emergency (ER) | payer OTHER, SELFPAY ==
--- NOTE | ~2023-06-26 | XR_ITS ---
EXAMINATION: XR foot LT min 3V DATE: 06/26/2023 17:29 INDICATION: Left foot pain. Fall down stairs. TECHNIQUE: 4 views of left foot were obtained. COMPARISON: Left foot radiographs 02/07/2009 FINDINGS: Bone alignment is normal no fracture. There is mild osteoarthritis of talonavicular joint. IMPRESSION: 1. No fracture. Reviewed, dictated and finalized at location E. Y LEVEL IMPRESSION: 1. No fracture.
--- NOTE | ~2023-06-26 | XR_ITS ---
EXAMINATION: XR foot RT min 3V DATE: 06/26/2023 17:29 INDICATION: Pain across the dose of the right foot post fall down stairs TECHNIQUE: Dorsoplantar, two oblique and lateral views of the right foot were obtained. COMPARISON: None. FINDINGS: Alignment is normal. Tiny crescentic ossific density at the dorsal/medial aspect of the head of the f irst metatarsal which has a chronic appearance and lies adjacent to a small corticated defect, potent ially a donor site, at the immediately adjacent head of the first metatarsal suspicious for a chronic nonunited chip versus avulsion fracture fragment. No acute fractures identified. Joint spaces are no rmal. Joint spaces are normal. Soft tissues are unremarkable. IMPRESSION: 1. 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 N o acute osseous abnormality. Reviewed, dictated and finalized at location A. [employer] IMPRESSION: 1. 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 No acute osseous abnormality.
[2023-06-26 16:38] VITALS: BP 96/65; PULSE 97; RESP 16; TEMP 36.9; O2SAT 96
--- NOTE | 2023-06-26 17:03 | ED.GENADULT ---
HPI - General Adult General Chief complaint: Extremity Injury, Lower Stated complaint: both feet injured. throwing up today Time Seen by Provider: 06/26/23 17:08 Source: patient, RN notes reviewed and old records reviewed Mode of arrival: ambulatory Limitations: no limitations History of Present Illness HPI narrative: 23-year-old female presents to the [facility] with injury to both feet, 1 week ago. Patient states that she throat today, concern for . States she vomited 1 time today Onset (ago): week(s) (1) Related Data Allergies Allergy/AdvReac Type Severity Reaction Status Date / Time sulfamethoxazole AdvReac Severe Rash Verified 06/26/23 16:58 [From ] trimethoprim [From ] AdvReac Severe Rash Verified 06/26/23 16:58 Review of Systems Review of Systems: All systems reviewed & are unremarkable except as noted in HPI and below Constitutional: Constitutional: Reports no additional constitutional complaints Eyes: Eyes: Reports no additional eye complaints ENT: Reports system reviewed and no additional complaints, except as documented Cardiovascular: Cardiovascular: Reports no additional cardiovascular complaints, Denies chest pain and Denies dyspnea Respiratory: Respiratory: Reports no additional respiratory complaints, Denies chest congestion, Denies cough and Denies dyspnea Gastrointestinal: Gastrointestinal: Reports no additional gastrointestinal complaints, Denies abdominal pain, Denies nausea and Denies vomiting Musculoskeletal: Musculoskeletal: Reports as per HPI Integumentary/Breasts: Skin/Breast: Reports system reviewed and no additional complaints, except as docu Neurologic: Reports system reviewed and no additional complaints, except as documented Psychiatric: Psychiatric: Reports no additional psychiatric complaints Allergic/Immunologic: Allergic/Immunologic: Reports no additional allergic/immunologic complaints [facility] Past Medical History Medical History No active medical problems Family History Family History Mother Diabetes mellitus Grandparent Diabetes mellitus Brain cancer Social History Social History Smoking packs per day: 0.5 Smoking cigarettes per day: 10.0 Years smoked: 1 Smoking pack-years: 0.50 Smoking status: Former smoker Tobacco type: e-cigarettes/vaping Second hand tobacco smoke exposure: Yes Alcohol intake: current Alcohol use details: Socially Substance use: never Substance use type: does not use Living arrangements: with family Occupation/Education: unemployed Gender identity (if verbalized by the patient): Female Sexual Orientation (if Verbalized by the Patient): Straight or Heterosexual Spiritual care concerns: No Agree to blood products: Yes Comments At the time of my signature, I reviewed and agree with the nursing past medical, surgical, social, and family history. There is no relevant family history pertinent to the patient complaint. Exam Const: General: cooperative, healthy appearing, comfortable, no acute distress, well developed, alert and well nourished Nutritional Appearance: well nourished and obese morbidly obese Orientation/consciousness: patient oriented x3 Limitations: no limitations HENMT: Head: normal to inspection Ears: hearing grossly normal bilaterally and external ears normal Face/Nose/Sinus: Normal external nose present, Normal nares present, Normal nasal mucous membranes and turbinates present, normal facial exam and face symmetric Face and sinus: normal facial exam and face symmetric Mouth: Yes lip normal and Yes moist mucous membranes Eyes: General: appearance normal, both eyes and all related structures Alignment and Position: alignment normal Periorbital: periorbital findings normal Pupils: Equal, round and reactive pu
== END 2023-06-26 17:50 | disposition home or self-care (01) ==
PROVIDERS: Emergency Provider Nurse Practitioner; PCP Family Medicine Adolescent Medicine
DX: S92.311A Displaced fracture of first metatarsal bone, right foot, initial encounter for closed fracture (principal); X58.XXXA Exposure to other specified factors, initial encounter; N39.0 Urinary tract infection, site not specified; Z32.02 Encounter for pregnancy test, result negative
CPT/HCPCS: 73630; 81003; 81025; 87086; 99214; G0463

== ENCOUNTER 2024-05-01 13:30 | Emergency (ER) | payer OTHER, SELFPAY ==
[2024-05-01 13:39] VITALS: BP 137/80; PULSE 82; RESP 16; TEMP 36.7; O2SAT 100
--- NOTE | 2024-05-01 14:48 | ED.URI ---
HPI - URI/Sore Throat General Chief Complaint: Upper Respiratory Infection Stated Complaint: flu like symptoms Time Seen by Provider: 05/01/24 14:48 Source: patient, RN notes reviewed and old records reviewed Mode of arrival: ambulatory Limitations: no limitations History of Present Illness HPI Narrative: 23-year-old female presents to the [facility] with nausea after eating [employer]. Patient also reports general flu-like symptoms since last night. No treatment prior to arrival Treatments prior to arrival: none Related Data Home Medications ?Medication ?Instructions ?Recorded ?Confirmed ?Last Taken ?Type amoxicillin 875 mg-potassium tablet 05/01/24 Unknown History clavulanate 125 mg tablet Allergies Allergy/AdvReac Type Severity Reaction Status Date / Time sulfamethoxazole (From AdvReac Severe Rash Verified 05/01/24 13:56 ) trimethoprim (From ) AdvReac Severe Rash Verified 05/01/24 13:56 Review of Systems Review of Systems: All systems reviewed & are unremarkable except as noted in HPI and below Constitutional: Constitutional: Reports no additional constitutional complaints ENT: Reports as per HPI and Reports nasal congestion Cardiovascular: Cardiovascular: Reports no additional cardiovascular complaints, Denies chest pain and Denies dyspnea Respiratory: Respiratory: Reports no additional respiratory complaints, Denies chest congestion, Denies cough and Denies dyspnea Gastrointestinal: Gastrointestinal: Reports as per HPI Musculoskeletal: Musculoskeletal: Reports no additional musculoskeletal complaints Integumentary/Breasts: Skin/Breast: Reports system reviewed and no additional complaints, except as docu PMFSH Past Medical History Medical History No active medical problems Family History Family History Mother Diabetes mellitus Grandparent Diabetes mellitus Brain cancer Social History Social History Smoking packs per day: 0.5 Smoking cigarettes per day: 10.0 Years smoked: 1 Smoking pack-years: 0.50 Smoking status: Former smoker Tobacco type: e-cigarettes/vaping Second hand tobacco smoke exposure: Yes Alcohol intake: current Alcohol use details: Socially Substance use: never Substance use type: does not use Living arrangements: with family Occupation/Education: unemployed Gender identity (if verbalized by the patient): Female Sexual Orientation (if Verbalized by the Patient): Straight or Heterosexual Spiritual care concerns: No Agree to blood products: Yes Comments At the time of my signature, I reviewed and agree with the nursing past medical, surgical, social, and family history. There is no relevant family history pertinent to the patient complaint. Exam Const: General: cooperative, healthy appearing, comfortable, no acute distress, well developed, alert and well nourished Nutritional Appearance: well nourished Orientation/consciousness: patient oriented x3 Limitations: no limitations HENMT: Head: normal to inspection Ears: hearing grossly normal bilaterally, external ears normal, TM's normal bilaterally, EAC's normal, mastoids normal and no periauricular adenopathy Face/Nose/Sinus: normal facial exam and face symmetric Face and sinus: normal facial exam and face symmetric Mouth: Yes Normal oral and palatal mucosa present, Yes lip normal, Yes tongue normal and Yes moist mucous membranes Throat: posterior oropharynx normal, uvula midline and no uvular edema Eyes: General: appearance normal, both eyes and all related structures Neck: Neck: normal visual inspection, full ROM, no lymphadenopathy and no meningeal signs Chest: Chest palpation & inspection: normal inspection of the chest Resp: Effort & Inspection: normal respiratory effort and able to speak in complete sentences Auscultation: clear to auscultation bilaterally, no crackles, no rales, no rhonchi and no wheezes Cardio: Rate: regular rate GI: GI Palp: No abdominal tenderness Skin: General skin exam: normal color and no rashes or lesions noted Neuro: General: patient oriented x3, gait normal, moves all extremities and no meningeal signs Cognition (Neuro): normal cognition Speech: normal speech Gait exam (Neuro): Normal gait present Extrem: General: normal to inspection, full ROM, capillary refill normal and normal gait Psych: Appearance: grossly normal and well kempt Mental Status: mental status grossly normal Speech and movement: Normal speech and movement present and Clear speech present Affect: normal affect Attitude: cooperative Course Course Level of Care: Express Care Visit Vital Signs Vital signs: Vital Signs Temperature 98.0 F 05/01/24 13:39 Pulse Rate 82 05/01/24 13:39 Respiratory Rate 16 05/01/24 13:39 Blood Pressure 137/80 05/01/24 13:39 Pulse Oximetry 100 05/01/24 13:39 Oxygen Delivery Room Air 05/01/24 13:39 Temperature 98.0 F 05/01/24 13:39 Pulse Rate 82 05/01/24 13:39 Respiratory Rate 16 05/01/24 13:39 Blood Pressure 137/80 05/01/24 13:39 Pulse Oximetry 100 05/01/24 13:39 Oxygen Delivery Room Air 05/01/24 13:39 Reviewed MDM - URI/Sore Throat MDM Narrative Medical decision making narrative: Patient presents with less than 24 hours of flu-like symptoms, nausea after eating [employer]. Currently denies abdominal pain. States that she has been nauseous and had a couple episodes of vomiting but able to tolerate liquids. Patient flu, COVID, strep were negative. No acute findings noted on exam Patient appropriate for outpatient treatment and follow-up Discharge instructions reviewed with patient, as well as provided in writing per nursing staff. The instructions also include specific and strict return/GO TO THE ER as well as f/u information. All questions have been answered, and the patient deny any further questions with discharge and discharge plan. Some parts of this dictation were generated by voice recognition software and may contain typographical and/or grammatical inaccuracies. Differential Diagnosis Differential diagnosis: Likely upper respiratory infection, otitis media, sinusitis, viral infection, influenza and pharyngitis Lab Data Labs: Lab Results 05/01/24 Range/Units 13:42 POC Influenza A Ag Negative (Negative) POC Influenza B Ag Negative (Negative) POC SARS CoV-2 Ag Negative (Negative) POC Grp A Strep Screen Negative (Negative) Reviewed Critical Care Time Critical Care Time Critical Care Time: No Discharge Plan Discharge Clinical Impression: Gastritis Qualifiers: Gastritis type: unspecified gastritis Chronicity: unspecified Gastritis bleeding: without bleeding Qualified Code(s): K29.70 - Gastritis, unspecified, without bleeding Patient Disposition: Home, Self-Care Condition: Stable Instructions: Antibiotic Form, Gastritis (ED) Additional Instructions: Keep your diet very simple. Nothing fried, greasy, spicy or highly processed. Increase your fluid intake with water, Gatorade, Pedialyte, ice pops in Jell-O. Do not drink anything high in sugar caffeinated or carbonated Follow-up with primary care provider For worsening symptoms go directly to the emergency room Patient Language: Sinhala Prescriptions: No Action amoxicillin-pot clavulanate 875-125 mg tablet Follow-up/Referrals: Giovany Andersen MD [Primary Care Provider] - 2 Weeks ([facility] care follow up ) Stand Alone Forms: Work/School Release IP Time of Disposition: 15:05
[2024-05-01 14:51] LABS: EDCOVIDSCREEN Negative (Negative); EDINFLUASCREEN Negative (Negative); EDINFLUBSCREEN Negative (Negative); EDSTREPNEGPOS1 Negative (Negative)
== END 2024-05-01 15:10 | disposition home or self-care (01) ==
PROVIDERS: Emergency Provider Nurse Practitioner; PCP Family Medicine Adolescent Medicine
DX: K29.70 Gastritis, unspecified, without bleeding (principal); Z20.822 Contact with and (suspected) exposure to COVID-19; F17.290 Nicotine dependence, other tobacco product, uncomplicated
CPT/HCPCS: 87081; 87426; 87804; 87880; 99213; G0463

== ENCOUNTER 2024-06-19 17:50 | Emergency (ER) | payer SELFPAY ==
--- NOTE | 2024-06-19 18:02 | ED_ITS ---
HPI - URI/Sore Throat General Chief Complaint: Upper Respiratory Infection Stated Complaint: cough,congestion,no appetite work note Time Seen by Provider: 06/19/24 18:02 Source: patient, RN notes reviewed and old records reviewed Mode of arrival: ambulatory Limitations: no limitations History of Present Illness HPI Narrative: Patient presents with complaints of 4 days of flu-like symptoms. She reports that initially she was taking some uqpb-ckd-nepxiwi medication for her symptoms, but did not find it helpful. She states that she has not been taking any medication for her symptoms since she did find it helpful of the [address] place. She is concerned because she is not feeling better yet and it has been 4 days. She is afebrile on arrival. She is not in any distress. Related Data Allergies Allergy/AdvReac Type Severity Reaction Status Date / Time sulfamethoxazole (From AdvReac Severe Rash Verified 06/19/24 17:54 ) trimethoprim (From ) AdvReac Severe Rash Verified 06/19/24 17:54 Review of Systems Review of Systems: All systems reviewed & are unremarkable except as noted in HPI and below Constitutional: Constitutional: Reports no additional constitutional complaints, Reports body ache(s), Reports fever(s), Reports headache(s) and Reports lethargy ENT: Reports system reviewed and no additional complaints, except as documented, Reports headache(s), Reports nasal congestion, Reports nasal discharge and Reports sore throat Cardiovascular: Cardiovascular: Reports no additional cardiovascular complaints Respiratory: Respiratory: Reports no additional respiratory complaints and Reports cough Gastrointestinal: Gastrointestinal: Reports no additional gastrointestinal complaints PMF Past Medical History Medical History No active medical problems Family History Family History Mother Diabetes mellitus Grandparent Diabetes mellitus Brain cancer Social History Social History Smoking packs per day: 0.5 Smoking cigarettes per day: 10.0 Years smoked: 1 Smoking pack-years: 0.50 Smoking status: Former smoker Tobacco type: e-cigarettes/vaping Second hand tobacco smoke exposure: Yes Alcohol intake: current Alcohol use details: Socially Substance use: never Substance use type: does not use Living arrangements: with family Occupation/Education: unemployed Gender identity (if verbalized by the patient): Female Sexual Orientation (if Verbalized by the Patient): Straight or Heterosexual Spiritual care concerns: No Agree to blood products: Yes Comments At the time of my signature, I reviewed and agree with the nursing past medical, surgical, social, and family history. There is no relevant family history pertinent to the patient complaint. Exam Const: General: cooperative, no acute distress, alert and awake Orientation/consciousness: oriented to person, oriented to place and oriented to time HENMT: Head: normal to inspection Ears: TM's normal bilaterally Mouth: Yes moist mucous membranes Throat: posterior oropharynx abnormal erythema Resp: Effort & Inspection: normal respiratory effort and able to speak in complete sentences Auscultation: clear to auscultation bilaterally, no crackles, no rales, no rhonchi and no wheezes Cardio: Palpation: normal PMI Rate: regular rate Rhythm: regular rhythm Heart sounds: S1 normal heart sound present and S2 normal heart sound present Neuro: General: oriented to person, oriented to place and oriented to time Cranial nerves: Yes CN's II-XII intact bilaterally Psych: Appearance: grossly normal Thought process: Normal thought process present Insight: Good insight present (Psych) Judgement: Good judgement present (Psych) Course Course Level of Care: Express Care Visit Vital Signs Vital signs: Reviewed MDM - URI/Sore Throat MDM Narrative Medical decision making narrative: Negative COVID, negative strep. Culture pending. Positive influenza. Supportive care measures discussed with patient. She is nontoxic appearing, stable for discharge home. Differential Diagnosis Differential diagnosis: Likely upper respiratory infection, otitis media, sinusitis, viral infection, bronchitis, influenza and pharyngitis Medical Records Attestation: I reviewed the patient's medical records. Lab Data Attestation: I reviewed the patient's lab results. Discharge Plan Discharge Clinical Impression: Influenza Patient Disposition: Home, Self-Care Condition: Stable Instructions: Antibiotic Form, Influenza (ED) Additional Instructions: Take gnin-qcg-gybtnsm medications to treat your symptoms. Follow package instructions. Follow-up with primary care provider. Emergency department for new or worse symptoms Patient Language: Indonesian Follow-up/Referrals: Giovany Andersen MD [Primary Care Provider] - 2 Weeks Stand Alone Forms: Work/School Release IP Time of Disposition: 18:43
[2024-06-19 18:10] VITALS: BP 102/57; PULSE 85; RESP 15; TEMP 36.6; O2SAT 99
[2024-06-19 18:31] LABS: EDCOVIDSCREEN Negative (Negative); EDINFLUASCREEN Positive (Negative); EDINFLUBSCREEN Negative (Negative)
== END 2024-06-19 18:45 | disposition home or self-care (01) ==
PROVIDERS: Emergency Provider Nurse Practitioner Family; PCP Family Medicine Adolescent Medicine
DX: J10.1 Influenza due to other identified influenza virus with other respiratory manifestations (principal); Z20.822 Contact with and (suspected) exposure to COVID-19; F17.290 Nicotine dependence, other tobacco product, uncomplicated
CPT/HCPCS: 87081; 87426; 87804; 99213; G0463

== ENCOUNTER 2025-04-13 21:22 | Emergency (ER) | payer SELFPAY ==
--- NOTE | ~2025-04-13 | XR_ITS ---
EXAMINATION: XR finger 4th LT min 2V DATE: 04/13/2025 22:41 INDICATION: Injury TECHNIQUE: Left fourth digit fingers x-rays were obtained. COMPARISON: None. IMPRESSION: 1. No fracture lucency or dislocation. 2. No radiopaque foreign body seen. NOTE: Preliminary radiology report provided by [facility] radiologist physician. Reviewed, dictated and finalized at location A. ER MEASURER
--- OUTSIDE RECORDS SUMMARY | 2025-04-13 21:25 | XMS_ITS | Clinical Summary ---
Author Organization [facility] Address [address] [place] [address] Care Team Providers Care Canvass Manager Name Role Phone Unavailable Primary Care Provider Unavailabl e Source Comments [facility],non-[facility] Affiliates and Associated Physician Practices is amultiple site organization consisting of ambulatory clinics and hospital sitesin [place], [place], [place] and [place]. This disclosure is being madepursuant to the Care Everywhere program and may not contain all information available regarding this patient. 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 Gender Identity Not on file Sexual Orientation Not on file Plan of Treatment Health Maintenance Due Date Last Done Comments HIV SCREENING 2014 HPV VACCINE (1 - 3-dose series) 2014 CHLAMYDIA/GONORRHEA SCREENING 2015 HEPATITIS C SCREENING 04/29/2017 DTAP/TDAP/TD VACCINES (1 - Tdap) 2018 HEPATITIS B VACCINE (1 of 3 - 19+ 3-dose series) 2018 DEPRESSION SCREENING 05/07/2024 COVID-19 VACCINE (1 - 2024-2 6 season) 2025 INFLUENZA VACCINE (#1) 2025 ZOSTER VACCINE (1 of 2) 2049 HIB VACCINE Aged Out No longer eligi ble based on patient's age to complete this topic MENINGOCOCCAL (Group B) VACC INE SHARED DECISION-MAKING Aged Out No longer eligibl e based on patient's age to complete this topic MENINGOCOCCAL GROUPS A/C/Y/W VACCINE Aged Out No longer eligible b ased on patient's age to complete this topic PNEUMOCOCCAL VACCINE Aged Out No long er eligible based on patient's age to complete this topic Insurance [facility]
--- OUTSIDE RECORDS SUMMARY | 2025-04-13 21:25 | XMS_ITS | Clinical Summary ---
Author Organization [facility] Address [address] [place] [address] Care Team Providers Care Epidemiologist Name Role Phone Giovany Andersen MD Primary Care Prov ider Allergies No known active allergies Medications ondansetron (ZOFRAN) 4 mg tablet Take 1 tablet (4 mg total) by mouth every 6 (six) hours 12 tablet 2 Active ondansetron ODT (ZOFRAN-ODT) 4 mg disintegrating tablet Take 1 tablet (4 mg total) by mouth every 8 (eight) hours as needed for nausea or vomiting 20 tablet 3 Active albuterol HFA (PROVENTIL HFA,VENTOLIN HFA,PROAIR HFA) 90 mcg/actuation inhaler Inhale 2 puffs every 4 (four) hours as needed for wheezing for up to 7 days 1 each 4 Active Immunizations Immunization Administration Dates Next Due Tdap 07/14/2021 Surgical History Surgery Date Site/Laterality Comments DILATION AND CURETTAGE OF UTERUS Medical History Medical History Date Comments Depression Social History Tobacco Use Types Packs/Day Years Used Date Smoking Tobacco: Some Days Cigarettes Smokeless Tobacco: Never Alcohol Use Standard Drinks/Week Comments Yes 0 (1 standard drink = 0.6 oz pur e alcohol) rare Personal Safety Answer Date Recorded Have you ever been in or are you currently in a harmful physical or emotional relationship or is someone making you feel afraid or unsafe? Denies 03/26/2024 Comments No Sex and Gender Information Value Date Recorded Sex Assigned at Not on file Legal Sex Female 11:30 PM NETWORK ASSOCIATE Gender Identity Female 12/22/2023 8:32 PM CDT Sexual Orientation Straight 12/22/2023 8: 32 PM CDT Last Filed Vital Signs Vital Sign Reading Time Taken Comments Blood Pressure 110/82 03/26/2024 10:27 AM NETWORK ASSOCIATE Pulse 80 03/26/2024 10:27 AM NETWORK ASSOCIATE Temperature 37.1 C (98.7 F) 03/26/2024 7:29 AM NETWORK ASSOCIATE Respiratory Rate 18 03/26/2024 10:27 AM NETWORK ASSOCIATE Oxygen Saturation 98% 03/26/2024 10:27 AM NETWORK ASSOCIATE Inhaled Oxygen Concentration - - Weight 133.3 kg (293 lb 14 oz) 03/26/2024 5:24 A M NETWORK ASSOCIATE Height 149.9 cm (4' 11) 03/26/2024 5:24 AM NETWORK ASSOCIATE Body Mass Index 59.36 03/26/2024 5:24 AM NETWORK ASSOCIATE Plan of Treatment Health Maintenance Due Date Last Done Comments Cervical Cancer Screening 1999 Depression Screening 1999 Hepatitis C Screening 1999 Varicella Vaccines (2 of 2 - 2-dose childhood series) 02/11/2004 11/19/2003 HPV Vaccines (1 - 3-dose series) 2014 Regular Well Visit/Exam 18-64 2017 Pneumococcal vaccine <65 (1 of 2 - PCV) 2018 Influenza Vaccine (#1) 2025 04/01/2014 DTaP/Tdap/Td Vaccine (6 - Td or Tdap) 07/15/2031 07/14/2021, 10/05/2000, 1999, Additional history exists Hepatitis B Screening Completed 1999 , 1999, 1999 Insurance [facility] Care Teams Epidemiologist Relationship Specialty Start Date End Date Giovany Andersen MD PCP - General Family Medicine 07/14/21
[2025-04-13 21:41] VITALS: BP 135/92; PULSE 96; RESP 16; TEMP 37.1; O2SAT 100
--- NOTE | 2025-04-13 22:52 | ED.UPPEXIN ---
HPI - Extremity Injury (Upper) General Chief Complaint: Extremity Injury, Upper Stated Complaint: hand injury Time Seen by Provider: 04/13/25 22:32 Source: patient Mode of arrival: ambulatory Limitations: no limitations History of Present Illness HPI narrative: This is a 24 year old female that presents to the ER for left 4th finger injury sustained last night. Reports swelling and bruising to the area. Decreased ROM due to pain. Related Data Allergies Allergy/AdvReac Type Severity Reaction Status Date / Time No Known Allergies Allergy Verified 04/13/25 21:47 Review of Systems Review of Systems: All systems reviewed & are unremarkable except as noted in HPI and below PMFSH Past Medical History Medical History No active medical problems Family History Family History Mother Diabetes mellitus Grandparent Diabetes mellitus Brain cancer Social History Social History Smoking packs per day: 0.5 Smoking cigarettes per day: 10.0 Years smoked: 1 Smoking pack-years: 0.50 Smoking status: Former smoker Tobacco type: e-cigarettes/vaping Second hand tobacco smoke exposure: Yes Alcohol intake: current Alcohol use details: Socially Substance use: never Substance use type: does not use Living arrangements: with family Occupation/Education: unemployed Gender identity (if verbalized by the patient): Female Sexual Orientation (if Verbalized by the Patient): Straight or Heterosexual Spiritual care concerns: No Agree to blood products: Yes Exam Narrative: GENERAL: Well-appearing, well-nourished, and in no acute distress. HEAD: Normocephalic, atraumatic. EYES: EOMI. EXTREMITIES: Mildly decreased active range of motion in the left 4th finger. Mild edema and bruising to the left 4th finger. Normal radial pulse. Normal sensation SKIN: Warm, dry, no rash. NEURO: No focal deficits. Alert and oriented x3. PSYCH: Normal mood and affect Course Vital Signs Vital signs: Vital Signs Temperature 98.7 F 04/13/25 21:41 Pulse Rate 96 04/13/25 21:41 Respiratory Rate 16 04/13/25 21:41 Blood Pressure 135/92 H 04/13/25 21:41 Pulse Oximetry 100 04/13/25 21:41 Oxygen Delivery Room Air 04/13/25 21:41 Temperature 98.7 F 04/13/25 21:41 Pulse Rate 96 04/13/25 21:41 Respiratory Rate 16 04/13/25 21:41 Blood Pressure 135/92 H 04/13/25 21:41 Pulse Oximetry 100 04/13/25 21:41 Oxygen Delivery Room Air 04/13/25 21:41 MDM MDM Narrative Medical decision making narrative: Patient presents the emergency department for left 4th finger injury. She is neurovascularly intact. Left 4th finger x-ray without acute osseous abnormalities. Patient placed in a splint for comfort, will follow up with PCP Differential Diagnosis Differential Diagnosis: Finger sprain, contusion, finger fracture Imaging Data Radiologist's impression: Left 4th finger x-ray: No evidence of acute fracture or dislocation Critical Care Time Critical Care Time Critical Care Time: No Discharge Plan Discharge Clinical Impression: Finger sprain Qualifiers: Encounter type: initial encounter Finger: ring finger Sprain of finger site: interphalangeal joint Laterality: left Qualified Code(s): S63.635A - Sprain of interphalangeal joint of left ring finger, initial encounter Patient Disposition: Home Condition: Stable Instructions: Finger Sprain (ED) Additional Instructions: Return to the ER if you experience fever, redness and swelling of your extremity, numbness or any other symptoms that are concerning to you Wear splint. No weight on the affected extremity. Ice and elevate extremity. Tylenol or Ibuprofen as needed for pain Follow up with your doctor for further care. Patient Language: Portuguese Follow-up/Referrals: Rui Lemus MD [Physician, Family Practice] Giovany Andersen MD [Primary Care Provider, Family Practice]
== END 2025-04-14 00:15 | disposition home or self-care (01) ==
PROVIDERS: Emergency Provider Physician Assistant; PCP Family Medicine Adolescent Medicine
DX: S63.635A Sprain of interphalangeal joint of left ring finger, initial encounter (principal); X58.XXXA Exposure to other specified factors, initial encounter
CPT/HCPCS: 29130; 73140; 99283